=== PATIENT | female | born 1955 | race Caucasian/White ===

== ENCOUNTER 2019-06-29 13:26 | Emergency (ER) | payer OTHER, MEDICAID ==
[~2019-06-29] VITALS: Ht 160 cm; Wt 63.5 kg
[2019-06-29 13:26] VITALS: BP_SYST 191
[2019-06-29 14:43] VITALS: BP_SYST 151
== END 2019-06-29 14:43 | disposition home or self-care (01) ==
LOC: SED 13:26
DX: S13.4XXA Sprain of ligaments of cervical spine, initial encounter (principal); S09.90XA Unspecified injury of head, initial encounter; Z88.8 Allergy status to other drugs, medicaments and biological substances; W01.10XA Fall on same level from slipping, tripping and stumbling with subsequent striking against unspecified object, initial encounter; Y93.89 Activity, other specified; Y92.89 Other specified places as the place of occurrence of the external cause; Y99.8 Other external cause status
CPT/HCPCS: 70450-TC; 72125-TC; 73060-TC; 99284